=== PATIENT | male | born 1945 | race African-American/Black ===

== ENCOUNTER 2018-05-09 01:38 | Emergency (ER) | payer OTHER ==
[~2018-05-09] VITALS: Ht 180.3 cm; Wt 170.1 kg
[2018-05-09 01:51] VITALS: BP 150/83; Ht 180.3 cm; Wt 170.1 kg
== END 2018-05-09 02:29 | disposition other institution (70) ==
LOC: ED 01:38
DX: Z02.89 Encounter for other administrative examinations (principal)